=== PATIENT | male | born 1995 | race Caucasian/White ===

== ENCOUNTER 2018-08-02 22:10 | Emergency (ER) | payer OTHER ==
[~2018-08-02] VITALS: Ht 185.4 cm; Wt 95.3 kg
[2018-08-02] MEDS ORDERED: IBUPROFEN 800 MG (MOTRIN) TAB PO STA (23:46)
--- NOTE | 2018-08-02 23:52 | ED Lower Extremity ---
General Chief Complaint: Lower Extremity Stated Complaint: L ANKLE PAIN Nursing Triage Note: PT AMBULATORY TO TRIAGE. PT REPORTS ROLLING L ANKLE AT APPROXIMATELY 0900 TODAY. L ANKLE VISIBLY SWOLLEN. PT REPORTS CONTINUING TO WORK ALL DAY ON ANKLE. Nursing Sepsis Screen: No Definite Risk History of Present Illness Date Seen by Provider: Aug 02, 2018 Time Seen by Provider: 23:25 Initial Comments 22-year-old male presents for injury to his left ankle that occurred at work today at approximately 0900. He states he was walking on uneven terrain at work when he rolled his left ankle. He denies any other injuries or previous problems with his left ankle. He is now complaining of increased pain and swelling. He took Tylenol 1,000 mg 30 minutes prior to coming. He has not taken any NSAIDs. Onset: this morning Pain/Injury Location: left ankle Method of Injury: twisted Modifying Factors: Improves With Rest Allergies and Home Medications Allergies Coded Allergies: No Known Drug Allergies (Unverified , 08/02/18) Patient Home Medication List Home Medication List Reviewed: Yes Review of Systems Constitutional: no symptoms reported, see HPI Musculoskeletal: see HPI, joint pain (left ankle), joint swelling All Other Systems Reviewed Negative Unless Noted: Yes Past Ueqxazb-Fiiuqk-Rkptwv Hx Past Med/Social Hx: Reviewed Nursing Past Med/Soc Hx Patient Social History Alcohol Use: Denies Use Recreational Drug Use: No Smoking Status: Never a Smoker 2nd Hand Smoke Exposure: No Recent Foreign Travel: No Contact w/Someone Who Travel: No Recent Infectious Disease Expo: No Recent Hopitalizations: No Physical Abuse: No Sexual Abuse: No Mistreated: No Seasonal Allergies Seasonal Allergies: No Past Medical History Surgeries: Yes Tonsillectomy Respiratory: No Cardiac: No Neurological: No Genitourinary: No Gastrointestinal: No Musculoskeletal: No Endocrine: No HEENT: Yes (EAR DRUM BURST IN 2018) Psychosocial: No Integumentary: No Blood Disorders: No Adverse Reaction/Blood Tranf: No Physical Exam Vital Signs Vital Signs - First Documented 08/02/18 22:36 Temp 99.9 Pulse 91 Resp 16 B/P (MAP) 122/71 (88) Pulse Ox 98 O2 Delivery Room Air Capillary Refill : Less Than 3 Seconds Height, Weight, BMI Height: 6'1.00" Weight: 210lbs. oz. 95.763386hv; BMI Method:Stated General Appearance: WD/WN, no apparent distress Cardiovascular: normal peripheral pulses, regular rate, rhythm Respiratory: chest non-tender, lungs clear, normal breath sounds Ankles: left ankle bone tenderness, left ankle limited range of motion, left ankle pain (over ATFL ), left ankle soft tissue tenderness, left ankle swelling Feet: left foot limited range of motion (secondary to pain), left foot soft tissue tenderness (lateral aspect) Neurologic/Tendon: normal sensation, normal motor functions, normal tendon functions Neurologic/Psychiatric: no motor/sensory deficits, alert, normal mood/affect, oriented x 3 Skin: normal color, warm/dry Progress/Results/Core Measures Results/Orders My Orders Orders - SARIMEHRDAD Ibuprofen Tablet (Motrin Tablet) (08/02/18 23:46) Vital Signs/I&O 08/02/18 22:36 Temp 99.9 Pulse 91 Resp 16 B/P (MAP) 122/71 (88) Pulse Ox 98 O2 Delivery Room Air Blood Pressure Mean: 88 Progress Progress Note : Time: 23:25 Progress Note Patient seen and evaluated, x-ray show no acute findings, Charan wrap and ice pack applied to left ankle. Discharge instructions and return precautions reviewed. Diagnostic Imaging Diagonstic Imaging: Xray Plain Films/CT/US/NM/MRI: ankle, other (foot) Comments No acute fractures, dislocations or acute bony abnormalities noted on the left foot or ankle. X-ray will be over read by radiology tomorrow. Departure Impression Primary Impression: Left ankle sprain Qualified Codes: S93.492A - Sprain of other ligament of left ankle, initial encounter Disposition: 01 HOME, SELF-CARE Condition: Improved Departure-Patient Inst. Decision time for Depature: 23:45 Referrals: NO,LOCAL PHYSICIAN (PCP/Family) Primary Care Physician Patient Instructions: Ankle Sprain (DC) Add. Discharge Instructions: Ice and elevate left ankle 20 minutes every 2 hours while awake. Use 4 inch Charan wrap to assist with swelling and pain. You may alternate between Tylenol 650 mg and ibuprofen 600 mg every 4 hours for pain and swelling Work on gentle range of motion to move her foot up and down. Follow-up with a primary care provider if symptoms are not improving or worsen. Return to emergency department for new, urgent health care needs. All discharge instructions reviewed with patient and/or family. Voiced understanding. Work/School Note: Work Release Form Date Seen in the Emergency Department: Aug 02, 2018 Return to Work: Aug 03, 2018 Other Restrictions Listed Below: Frequent breaks to ice and elevate left ankle. Restrictions: Progress activity as tolerated, limited time on uneven terrain or climbing. MEHRDAD GUO Aug 02, 2018 23:52
[2018-08-02 23:58] VITALS: BP 126/80
--- NOTE | 2018-08-03 07:01 | Diagnostic Imaging Report ---
INDICATION: Rolled left ankle, pain and swelling. TECHNIQUE: 3 views of the left foot CORRELATION STUDY: None FINDINGS: The osseous structures of the foot are intact. Joint spaces are maintained. Alignment anatomic. Soft tissues appearing unremarkable. IMPRESSION: 1. Negative for acute findings of the foot. Dictated by: Dictated on workstation # [id number]
--- NOTE | 2018-08-03 07:02 | Diagnostic Imaging Report ---
INDICATION: Rolled left ankle earlier in the day. Pain and swelling. TECHNIQUE: Three views of the left ankle CORRELATION STUDY: None FINDINGS: The bony alignment is anatomic. The talar dome is intact. The ankle mortise is maintained. There is no acute fracture or dislocation. Moderate soft tissue swelling, particularly laterally. IMPRESSION: Negative for acute bony abnormality of the ankle. Dictated by: Dictated on workstation # [id number]
== END 2018-08-02 23:58 | disposition home or self-care (01) ==
LOC: ER 22:12
DX: S93.492A Sprain of other ligament of left ankle, initial encounter (principal); Z90.89 Acquired absence of other organs; X50.1XXA Overexertion from prolonged static or awkward postures, initial encounter; Y92.59 Other trade areas as the place of occurrence of the external cause; Y99.0 Civilian activity done for income or pay
CPT/HCPCS: 73610; 73630

== ENCOUNTER 2019-01-07 12:30 | Outpatient (CLI) | payer OTHER ==
[~2019-01-07] VITALS: Ht 188 cm; Wt 102.1 kg
== END 2019-01-07 15:17 | disposition home or self-care (01) ==
LOC: PREOP 12:30
PROVIDERS: ATTEND Surgery
DX: Z01.818 Encounter for other preprocedural examination (principal)

== ENCOUNTER 2019-01-11 08:35 | Day surgery (SDC) | payer OTHER ==
[~2019-01-11] VITALS: Ht 188 cm; Wt 102.1 kg
[2019-01-11] VITALS (8 sets, daily range): BP systolic 108–125; BP diastolic 55–85
[~2019-01-11 08:35] MED LIST: LACTATED RINGERS 1,000 ML IV ONE
[2019-01-11] MEDS ORDERED: PROPOFOL INJECTION 50 ML IV ONE (08:36)
[2019-01-11] MEDS ORDERED: MIDAZOLAM 5 MG/5 ML (VERSED) VIAL ONE (08:36)
[2019-01-11] MEDS ORDERED: LACTATED RINGERS 1,000 ML IV STA (08:39)
[2019-01-11] MEDS ORDERED: HURRICAINE EXT TUBE (BENZOCAINE) XX PRN (08:45)
[2019-01-11] MEDS ORDERED: HURRICAINE EXT TUBE (BENZOCAINE) ONE (08:50)
--- NOTE | 2019-01-11 08:54 | Progress Note-Pre Operative ---
Pre-Operative Progress Note H&P Reviewed The H&P was reviewed, patient examined and no changes noted. Time Seen by Provider: 08:51 Date H&P Reviewed: Jan 11, 2019 Time H&P Reviewed: 08:53 Pre-Operative Diagnosis: hematemesis, hematochezia, anemia ADRIANA STANFORD DO Jan 11, 2019 08:54
--- NOTE | 2019-01-11 09:21 | Progress Note-Post Operative ---
Post-Operative Progess Note Surgeon (s)/Business Analyst Manager (s) Surgeon ADRIANA STANFORD DO Business Analyst Manager: none Pre-Operative Diagnosis hematemesis, hematochezia, anemia Post-Operative Diagnosis Gastric ulcer Internal hemorrhoids Procedure & Operative Findings Date of Procedure 01/11/19 Procedure Performed/Findings EGD with bx colon Anesthesia Type IV sedation by RADIOLOGIST CHIEF OF BREAST IMAGING Estimated Blood Loss Estimated blood loss (mL): scant Specimens/Packing Specimens Removed antral bx GE jxn bx ADRIANA STANFORD DO Jan 11, 2019 09:21
--- NOTE | 2019-01-11 09:23 | Endoscopy Discharge Instruct ---
Endo Procedure/Findings Findings 1.: Gastric Ulcer 2.: Hiatal Hernia 3.: Internal Hemorrhoids Discharge Instructions - Activity: You might feel a little sleepy until tomorrow. This is due to the medicine you received to relax you. Until tomorrow, you should: NOT drive a car, operate machinery or power tools. NOT drink any alcoholic beverages. NOT make any important decisions or sign importortant papers. Do not return to work until tomorrow, unless otherwise instructed. Resume previous activities tomorrow. Diet: Start by taking liquids. If you tolerate liquids, advance to solid food. make an appointment for one week Notify Physician - If you experience excessive bleeding, unusual abdominal pain, fever, or chest pain, contact your doctor immediately. ADRIANA STANFORD DO Jan 11, 2019 09:23
--- NOTE | 2019-01-11 14:25 | Anesthesia-General Post-Op ---
MAC Patient Condition Mental Status/LOC: Same as Preop Cardiovascular: Satisfactory Nausea/Vomiting: Absent Respiratory: Satisfactory Pain: Controlled Complications: Absent Post Op Complications Complications None Follow Up Care/Instructions Patient Instructions None needed. Anesthesiology Discharge Order Discharge Order Patient is doing well, no complaints, stable vital signs, no apparent adverse anesthesia problems. No complications reported per nursing. EVELYN BOOGIE CRNA Jan 11, 2019 14:25
--- NOTE | 2019-01-11 15:52 | OPERATIVE REPORT ---
DATE OF SERVICE: 01/11/2019 PREOPERATIVE DIAGNOSES: Hematemesis, hematochezia, and anemia. POSTOPERATIVE DIAGNOSES: 1. Questionable gastric ulcer. 2. Internal hemorrhoids. PROCEDURES PERFORMED: 1. Esophagogastroduodenoscopy with biopsy. 2. Colonoscopy. SURGEON: Jose R Ortega DO. CARGO AND RAMP SERVICES MANAGER: None. ANESTHESIA: IV sedation by FISHING BOAT CAPTAIN. SPECIMENS: Biopsy from the antrum and biopsy from the GE junction. BLOOD LOSS: Scant. FLUIDS: Per Anesthesia. POSTOPERATIVE CONDITION: Stable. INDICATION FOR PROCEDURE: The patient is a 23-year-old male with a history of hematemesis and hematochezia as well as some anemia and needed a workup. FINDINGS: The patient had what looked like gastric ulcer in the antrum, duodenum and possibly a small hiatal hernia and then some internal hemorrhoids nothing else in the colon. PROCEDURE NOTE: After informed consent was obtained, the patient was brought to the endoscopy suite, placed in the bed in left lateral decubitus position. He was administered IV sedation by the FISHING BOAT CAPTAIN who monitored his vitals the entire time, heart rate, blood pressure and pulse ox. Scope was inserted down the mouth through the esophagus into the stomach and the stomach at the antrum that looked like there was some bleeding and looked like possibly some ulcers, pushed to pass this into the duodenum, duodenum looked fine, took a picture of the duodenum, pulled back into the antrum and did a biopsy of what looked like a gastric ulcer, retroflexed the scope, saw what looked like might be a small hiatal hernia, pulled back into the GE junction, did a biopsy of the GE junction and sucked out the air in the stomach and then pulled the scope up the esophagus and out of the mouth. Switched camera, switched gloves, went down below, started the colonoscopy, pushed the scope in all the way about 40 cm, able to get to the cecum, took a picture of appendiceal orifice, noted the ileocecal valve and then slowly withdrew the scope insufflating to look circumferentially at the browning looking at the cecum up the ascending colon to the hepatic flexure, then down the transverse colon, the splenic flexure, into the descending colon and then down in the sigmoid and finally into the rectum, retroflexed the rectal vault, saw some minimal internal hemorrhoids, took a picture of this and then removed the scope. The patient tolerated the procedure well and recovered in endoscopy suite. Job ID: [id number] DocumentID: [id number] Dictated Date: 01/11/2019 09:22:30 Assistance Specialist Date: 01/11/2019 15:51:49 Dictated By: JOSE R ORTEGA DO
== END 2019-01-11 10:30 | disposition home or self-care (01) ==
LOC: ENDO 08:35
PROVIDERS: ATTEND Surgery
DX: K29.50 Unspecified chronic gastritis without bleeding (principal); K21.0 Gastro-esophageal reflux disease with esophagitis; B96.81 Helicobacter pylori [H. pylori] as the cause of diseases classified elsewhere; K64.8 Other hemorrhoids; Z87.19 Personal history of other diseases of the digestive system; Z82.49 Family history of ischemic heart disease and other diseases of the circulatory system

== ENCOUNTER 2019-02-25 16:27 | Outpatient (RCR) | payer OTHER | END 2019-05-26 | disposition home or self-care (01) | LOC: LAB 16:27 | PROVIDERS: ATTEND Surgery | DX: Z09 Encounter for follow-up examination after completed treatment for conditions other than malignant neoplasm (principal); B96.81 Helicobacter pylori [H. pylori] as the cause of diseases classified elsewhere | CPT/HCPCS: 36415; 87338 ==